=== PATIENT | female | born 1960 | race Caucasian/White ===

== ENCOUNTER 2017-05-09 12:59 | Emergency (ER) | payer BC ==
[2017-05-09 13:04] VITALS: BP 120/77; PULSE 95; TEMP 98.8; BMI 28.3
--- NOTE | 2017-05-09 13:14 | PDOC ---
History of Present Illness - General Chief Complaint: Pain, Acute Stated Complaint: RIGHT ABD PAIN Time Seen by Provider: 05/09/17 13:06 History Source: Patient Exam Limitations: No Limitations - History of Present Illness Initial Comments: 56 yo F history cervical CA (in remission for many years), GERD presents with dec appetite, RUQ pain for past 2 days. She has been unable to eat today due to pain and dec appetite. No prior similar symptoms. No N/V/D, no fever/chills. Aside from her surgery for cervical CA, no other abdominal surgeries. No prior history of gallstones. Pain is moderate, nonradiating. Worse with ambulation. Past History - Past Medical History Allergies/Adverse Reactions: Allergies Allergy/AdvReac Type Severity Reaction Status Date / Time No Known Drug Allergies Allergy Verified 05/09/17 13:00 Home Medications: Ambulatory Orders Azithromycin [Zithromax 250mg Tablets -] 250 mg PO UTDICT #6 tab 05/09/17 Anemia: No Asthma: No Cancer: Yes (Cervical 30 yrs ago) Cardiac Disorders: No CVA: No COPD: No CHF: No Dementia: No Diabetes: No GI Disorders: Yes (GERD) Disorders: No HTN: No Hypercholesterolemia: No Liver Disease: No Seizures: No Thyroid Disease: No - Surgical History Abdominal Surgery: No Appendectomy: No Cardiac Surgery: No Cholecystectomy: No Lung Surgery: No Neurologic Surgery: No Orthopedic Surgery: No - Suicide/Smoking/Psychosocial Hx Smoking Status: No Smoking History: Former smoker Have you smoked in the past 12 months: No Number of Cigarettes Smoked Daily: 0 If you are a former smoker, when did you quit?: 2010 Information on smoking cessation initiated: No Hx Alcohol Use: No Drug/Substance Use Hx: No Substance Use Type: None Hx Substance Use Treatment: No Review of Systems - Review of Systems Able to Perform ROS?: Yes Comments:: GENERAL/CONSTITUTIONAL: No fever or chills. No weakness. HEAD, EYES, EARS, NOSE AND THROAT: No change in vision. No ear pain or discharge. No sore throat. CARDIOVASCULAR: No chest pain or shortness of breath. RESPIRATORY: No cough, wheezing, or hemoptysis. GASTROINTESTINAL: No nausea, vomiting, diarrhea or constipation. +Abd pain. GENITOURINARY: No dysuria, frequency, or change in urination. MUSCULOSKELETAL: No joint or muscle swelling or pain. No neck or back pain. SKIN: No rash NEUROLOGIC: No headache, vertigo, loss of consciousness, or change in strength/ sensation. ENDOCRINE: No increased thirst. No abnormal weight change. HEMATOLOGIC/LYMPHATIC: No anemia, easy bleeding, or history of blood clots. ALLERGIC/IMMUNOLOGIC: No hives or skin allergy. *Physical Exam - Vital Signs Last Vital Signs Temp Pulse Resp BP Pulse Ox 98.8 F 95 H 18 120/77 96 05/09/17 13:00 05/09/17 13:00 05/09/17 13:00 05/09/17 13:05/09/17 13:00 - Physical Exam Comments: GENERAL: Awake, alert, and fully oriented, in no acute distress HEAD: No signs of trauma EYES: PERRLA, EOMI, sclera anicteric, conjunctiva clear ENT: Auricles normal inspection, hearing grossly normal, nares patent, oropharynx clear without exudates. Moist mucosa NECK: Normal ROM, supple, no lymphadenopathy, JVD, or masses LUNGS: Breath sounds equal, clear to auscultation bilaterally. No wheezes, and no crackles HEART: Regular rate and rhythm, normal S1 and S2, no murmurs, rubs or gallops ABDOMEN: Soft, +RUQ tenderness, +hyperactive bowel sounds. +Guarding, no rebound. No masses EXTREMITIES: Normal range of motion, no edema. No clubbing or cyanosis. No cords, erythema, or tenderness NEUROLOGICAL: Cranial nerves II through XII grossly intact. Normal speech, normal gait SKIN: Warm, Dry, normal turgor, no rashes or lesions noted. ED Treatment Course - LABORATORY CBC & Chemistry Diagram: 05/09/17 13:23 05/09/17 13:23 Medical Decision Making - Medical Decision Making 05/09/17 13:17 Will obtain bloodwork, give IV fluids, and plan for RUQ sono to r/o acute lata. She declines pain meds for abd pain, but agrees to ofirmev for headache. 05/09/17 16:22 Late entry. Patient had negative sono (with exception of fatty liver), however still indicated R side for pain. She had recent cough, so CXR was obtained, + retrocardiac infiltrate. Will treat with abx. Stable for DC home. *DC/Admit/Observation/Transfer Diagnosis at time of Disposition: Abdominal pain Qualifiers: Abdominal location: unspecified location Qualified Code(s): R10.9 - Unspecified abdominal pain Pneumonia Qualifiers: Pneumonia type: due to unspecified organism Laterality: unspecified laterality Lung location: unspecified part of lung Qualified Code(s): J18.9 - Pneumonia, unspecified organism - Discharge Dispostion Disposition: HOME Condition at time of disposition: Stable Admit: No - Prescriptions Prescriptions: Azithromycin [Zithromax 250mg Tablets -] 250 mg PO UTDICT #6 tab - Referrals - Patient Instructions Printed Discharge Instructions: DI for Pneumonia -- Adult, DI for Abdominal Pain-Adult - Post Discharge Activity Forms/Work/School Notes: Back to Work
[2017-05-09] MEDS ORDERED: ACETAMINOPHEN INJECTION 100 ML IVPB ONE (13:17)
[2017-05-09] MEDS ORDERED: SODIUM CHLORIDE 1,000 ML IV STA (13:18)
[2017-05-09] MEDS ORDERED: ACETAMINOPHEN 1000 MG/100 ML VIAL (NON FORMULARY) IVPB ONE (13:18)
[2017-05-09 13:33] LABS: PH,URINE 5.5 (4.5-8); URINE APPEARANCE Clear; URINE BILIRUBIN Negative (NEGATIVE); URINE GLUCOSE (UA) Negative (NEGATIVE); URINE KETONE Negative (NEGATIVE); URINE LEUK ESTERASE Negative (NEGATIVE); URINE NITRITE Negative (NEGATIVE); URINE PROTEIN Negative (NEGATIVE); URINE UROBILINOGEN 0.2 (0.2-1.0)
[2017-05-09 13:34] LABS: URINE BLOOD Trace-lysed (NEGATIVE)
[2017-05-09 13:35] LABS: URINE COLOR YELLOW
[2017-05-09 13:35] LABS: BASO % 0.4 % (0-2.0); EOS % 2.1 % (0-4.5); HEMATOCRIT 39.1 % (32.4-45.2); HEMOGLOBIN 13.1 GM/dl (10.7-15.3); LYMPH % 26.8 % (8-40); MCH 27.3 pg (25.7-33.7); MCHC 33.6 g/dl (32.0-36.0); MEAN CELL VOLUME 81.4 fl (80-96); MEAN PLT VOLUME 8.1 fl (7.5-11.1); MONO % 7.3 % (3.8-10.2); NEUT % 63.4 % (42.8-82.8); PLATELET COUNT 388 K/MM3 (134-434); RDW 13.3 % (11.6-15.6); WHITE BLOOD COUNT 7.5 K/mm3 (4.0-10.8)
[2017-05-09 13:42] LABS: INR 1.01 (0.82-1.09); PROTHROMBIN TIME (PATIENT) 11.3 SEC (10.2-13.0)
[2017-05-09 13:46] LABS: ALBUMIN 3.9 g/dl (3.5-5.0); ALK PHOS 67 U/L (32-92); ANION GAP 7 (8-16); BILIRUBIN,TOTAL 0.5 mg/dl (0.2-1.0); BLOOD UREA NITROGEN 13 mg/dl (7-18); CHLORIDE 104 mmol/L (98-107); CO2 24 mmol/L (22-28); CREATININE 0.6 mg/dl (0.6-1.3); GLUCOSE,RANDOM 93 mg/dl (74-106); SGOT/AST 28 U/L (10-42); SGPT/ALT 20 U/L (10-40); SODIUM 135 mmol/L (136-145); TOT PROT 7.2 g/dl (6.4-8.3)
[2017-05-09 13:47] LABS: EPI CELLS FEW /HPF; URINE BACTERIA FEW /hpf (NEGATIVE)
[2017-05-09 14:48] LABS: LIPASE 154 U/L (73-393)
== END 2017-05-09 16:25 | disposition home or self-care (01) ==
LOC: FER 12:59
PROC: 3E033GC Introduction of Other Therapeutic Substance into Peripheral Vein, Percutaneous Approach (ICD-10-PCS; principal; 2017-05-09)
PROC: 3E0337Z Introduction of Electrolytic and Water Balance Substance into Peripheral Vein, Percutaneous Approach (ICD-10-PCS; 2017-05-09)
DX: J18.9 Pneumonia, unspecified organism (principal); R10.11 Right upper quadrant pain; Z85.41 Personal history of malignant neoplasm of cervix uteri; K21.9 Gastro-esophageal reflux disease without esophagitis; Z87.891 Personal history of nicotine dependence
CPT/HCPCS: 36415; 71046-TC-FY; 76705-TC; 80053; 81003; 81015; 83690; 85025; 85610; 86850; 86900; 86901; 99282-25

== ENCOUNTER 2017-06-16 11:09 | Day surgery (SDC) | payer BC ==
[2017-06-07 15:00] VITALS: BMI 26.9
[2017-06-16] MEDS ORDERED: PROPOFOL 20 ML ONE (11:25)
[2017-06-16] MEDS ORDERED: LIDOCAINE HCL/PF 2% SDV 5ML VIAL ONE (11:25)
[2017-06-16 12:27] VITALS: TEMP 98
[2017-06-16 12:45] VITALS: BP 110/50; PULSE 70
--- NOTE | 2017-06-18 12:07 | PATH ---
Surgical Pathology Report Patient Name: GREGORIA APARICIO [facility]. Rec. #: [id number] /Age/Gender: 1960 (Age: 56) / F Account: [id number] Location: Taken: 06/16/2017 Received: 06/16/2017 Reported: 06/18/2017 Physicians: Jacinda Davis M.D. Specimen(s) Received A: BX DUODENUM 2ND PORTION B: BX ANTRUM C: BX GE JUNCTION Clinical History Dyspepsia Postoperative diagnosis: Ulcer, hiatal hernia, gastritis Final Diagnosis A. DUODENUM, SECOND PORTION, BIOPSY: DUODENAL MUCOSA WITHOUT SIGNIFICANT PATHOLOGIC FINDINGS. B. STOMACH, ANTRUM, BIOPSY: GASTRIC ANTRAL MUCOSA WITH MILD CHRONIC GASTRITIS. IMMUNOHISTOCHEMICAL STAIN FOR H. PYLORI IS NEGATIVE. C. GASTROESOPHAGEAL (GE) JUNCTION, BIOPSY: GASTRIC CARDIAC TYPE MUCOSA WITH MILD CHRONIC GASTRITIS. NO INTESTINAL METAPLASIA, DYSPLASIA, OR SQUAMOUS MUCOSA IDENTIFIED. Electronically Signed Jacinda Palomares M.D. Gross Description A. Received in formalin, labeled "BX duodenum" is a fontaine, irregular portion of soft tissue measuring 0.3 cm. in greatest dimension. The specimen is submitted in toto in one cassette. B. Received in formalin, labeled "BX antrum" is a fontaine, irregular portion of soft tissue measuring 0.2 cm. in greatest dimension. The specimen is submitted in toto in one cassette. C. Received in formalin, labeled "BX GE junction" is a fontaine, irregular portion of soft tissue measuring 0.4 cm. in greatest dimension. The specimen is submitted in toto in one cassette. ABDIRASHID/06/17/2017 bethanie/06/17/2017
== END 2017-06-16 12:47 | disposition home or self-care (01) ==
LOC: FASU-ENDO 11:09
PROVIDERS: ATTEND Internal Medicine Gastroenterology
PROC: 0DB68ZX Excision of Stomach, Via Natural or Artificial Opening Endoscopic, Diagnostic (ICD-10-PCS; 2017-06-16)
PROC: 0DB48ZX Excision of Esophagogastric Junction, Via Natural or Artificial Opening Endoscopic, Diagnostic (ICD-10-PCS; principal; 2017-06-16 12:15)
DX: K29.50 Unspecified chronic gastritis without bleeding (principal); R13.10 Dysphagia, unspecified; K44.9 Diaphragmatic hernia without obstruction or gangrene; K25.9 Gastric ulcer, unspecified as acute or chronic, without hemorrhage or perforation
CPT/HCPCS: 88305-TC; 88342-TC

== ENCOUNTER 2017-10-13 09:37 | Day surgery (SDC) | payer BC ==
[2017-10-08 12:33] VITALS: BMI 27.4
[2017-10-13] MEDS ORDERED: PROPOFOL 20 ML ONE ×2 (10:11)
[2017-10-13 12:09] VITALS: TEMP 97.5
[2017-10-13 12:43] VITALS: BP 116/51; PULSE 65
--- NOTE | 2017-10-14 12:23 | PATH ---
Surgical Pathology Report Patient Name: GREGORIA APARICIO [facility]. Rec. #: [id number] /Age/Gender: 1960 (Age: 56) / F Account: [id number] Location: [facility] Taken: 10/13/2017 Received: 10/13/2017 Reported: 10/14/2017 Physicians: Jacinda Davis M.D. Specimen(s) Received A: ANTRUM B: CECUM C: TRANSVERSE D: DESCENDING E: SIGMOID F: RECTO SIGMOID X2 G: RECTUM BX Clinical History GERD, rule out colon cancer Postoperative diagnosis: Gastritis, colonic polyps Final Diagnosis A. STOMACH, ANTRUM, BIOPSY: GASTRIC ANTRAL MUCOSA WITHOUT SIGNIFICANT PATHOLOGIC FINDINGS. IMMUNOHISTOCHEMICAL STAIN FOR H. PYLORI IS NEGATIVE. B. CECUM, BIOPSY: TUBULAR ADENOMA C. TRANSVERSE COLON, POLYPECTOMY: TUBULAR ADENOMA(S). D. DESCENDING COLON, BIOPSY: POLYPOID COLONIC MUCOSA WITHOUT SIGNIFICANT PATHOLOGIC FINDINGS. E. SIGMOID COLON, BIOPSY: POLYPOID COLONIC MUCOSA WITH FOCAL SUPERFICIAL HYPERPLASTIC FEATURES. F. RECTOSIGMOID COLON, BIOPSY: HYPERPLASTIC POLYP(S). G. RECTUM, BIOPSY: HYPERPLASTIC POLYP. Electronically Signed Jacinda Palomares M.D. Gross Description A. Received in formalin, labeled "antrum" is a fontaine, irregular portion of soft tissue measuring 0.3 cm. in greatest dimension. The specimen is submitted in toto in one cassette. B. Received in formalin, labeled "cecum" is a fontaine, irregular portion of soft tissue measuring 0.3 cm. in greatest dimension. The specimen is submitted in toto in one cassette. C. Received in formalin, labeled "transverse" is a fontaine, irregular portion of soft tissue measuring 0.7 cm. in greatest dimension. The specimen is submitted in toto in one cassette. D. Received in formalin, labeled "descending" is a fontaine, irregular portion of soft tissue measuring 0.5 cm. in greatest dimension. The specimen is submitted in toto in one cassette. E. Received in formalin, labeled "sigmoid" is a fontaine, irregular portion of soft tissue measuring 0.3 cm. in greatest dimension. The specimen is submitted in toto in one cassette. F. Received in formalin, labeled "rectosigmoid" are 3 fontaine, irregular portions of soft tissue ranging from 0.3-0.4 cm. in greatest dimension. The specimens are submitted in toto in one cassette. G. Received in formalin, labeled "rectum" is a fontaine, irregular portion of soft tissue measuring 0.2 cm. in greatest dimension. The specimen is submitted in toto in one cassette. 10/13/201710/13/2017
== END 2017-10-13 12:50 | disposition home or self-care (01) ==
LOC: FASU-ENDO 09:37
PROVIDERS: ATTEND Internal Medicine Gastroenterology
PROC: 0DBM8ZX Excision of Descending Colon, Via Natural or Artificial Opening Endoscopic, Diagnostic (ICD-10-PCS; 2017-10-13)
PROC: 0DB68ZX Excision of Stomach, Via Natural or Artificial Opening Endoscopic, Diagnostic (ICD-10-PCS; 2017-10-13)
PROC: 0DBL8ZX Excision of Transverse Colon, Via Natural or Artificial Opening Endoscopic, Diagnostic (ICD-10-PCS; principal; 2017-10-13 11:16)
PROC: 0DBH8ZX Excision of Cecum, Via Natural or Artificial Opening Endoscopic, Diagnostic (ICD-10-PCS; 2017-10-13 11:16)
PROC: 0DBN8ZX Excision of Sigmoid Colon, Via Natural or Artificial Opening Endoscopic, Diagnostic (ICD-10-PCS; 2017-10-13 11:16)
DX: Z12.11 Encounter for screening for malignant neoplasm of colon (principal); D12.0 Benign neoplasm of cecum; D12.3 Benign neoplasm of transverse colon; D12.4 Benign neoplasm of descending colon; D12.5 Benign neoplasm of sigmoid colon; K63.5 Polyp of colon; K57.30 Diverticulosis of large intestine without perforation or abscess without bleeding; K64.8 Other hemorrhoids; Z87.11 Personal history of peptic ulcer disease; Z13.810 Encounter for screening for upper gastrointestinal disorder
CPT/HCPCS: 88305-TC; 88342-TC

== ENCOUNTER 2020-06-07 10:03 | Emergency (ER) | payer BC ==
[2020-06-07 10:32] VITALS: BMI 29.2
[2020-06-07] MEDS ORDERED: BAMLANIVIMAB 700 MG in SODIUM CHLORIDE 250 ML IVPB ONE (11:29)
[2020-06-07] MEDS ORDERED: SODIUM CHLORIDE IVPB ONE (11:55)
[2020-06-07] MEDS ORDERED: BAMLANIVIMAB IVPB ONE (11:55)
[2020-06-07] MEDS ORDERED: ETESEVIMAB IVPB ONE (11:55)
[2020-06-07 12:24] LABS: HEMATOCRIT 37.5 % (32.4-45.2); HEMOGLOBIN 12.3 GM/dL (10.7-15.3); MCH 27.4 pg (25.7-33.7); MCHC 32.9 g/dl (32.0-36.0); MEAN CELL VOLUME 83.2 fl (80-96); MEAN PLT VOLUME 8.2 fl (7.5-11.1); PLATELET COUNT 316 K/MM3 (134-434); RDW 14.8 % (11.6-15.6); WHITE BLOOD COUNT 11.1 K/mm3 (4.0-10.0)
[2020-06-07 12:46] LABS: POTASSIUM 4.2 mmol/L (3.5-5.1)
[2020-06-07 12:47] LABS: CALCIUM 8.7 mg/dL (8.5-10.1)
[2020-06-07 12:48] LABS: BLOOD UREA NITROGEN 11.5 mg/dL (7-18)
[2020-06-07 12:51] LABS: CREATININE 0.7 mg/dL (0.55-1.3)
[2020-06-07 15:27] VITALS: BP 136/87; PULSE 89; TEMP 98.7
== END 2020-06-07 15:27 | disposition home or self-care (01) ==
LOC: JER 10:03 → JCOVINFU 10:03
DX: U07.1 COVID-19 (principal)
CPT/HCPCS: 36415; 71046-TC-FY; 80048; 85027; 99284-25; M0239; Q0239; Q0245

== ENCOUNTER 2020-09-11 11:04 | Day surgery (SDC) | payer BC ==
[2020-09-06 11:45] VITALS: BMI 29.2
[2020-09-11] MEDS ORDERED: PROPOFOL 20 ML ONE ×2 (11:56)
[2020-09-11 13:17] VITALS: TEMP 97.9
[2020-09-11 13:41] VITALS: BP 122/60; PULSE 70
== END 2020-09-11 14:15 | disposition home or self-care (01) ==
LOC: FASU-ENDO 11:04
PROVIDERS: ATTEND Internal Medicine Gastroenterology
PROC: 0DB98ZX Excision of Duodenum, Via Natural or Artificial Opening Endoscopic, Diagnostic (ICD-10-PCS; 2020-09-11)
PROC: 0DB68ZX Excision of Stomach, Via Natural or Artificial Opening Endoscopic, Diagnostic (ICD-10-PCS; 2020-09-11)
PROC: 0DB48ZX Excision of Esophagogastric Junction, Via Natural or Artificial Opening Endoscopic, Diagnostic (ICD-10-PCS; 2020-09-11)
PROC: 0DBN8ZX Excision of Sigmoid Colon, Via Natural or Artificial Opening Endoscopic, Diagnostic (ICD-10-PCS; principal; 2020-09-11 12:30)
DX: Z86.010 Personal history of colon polyps (principal); D12.7 Benign neoplasm of rectosigmoid junction; K64.0 First degree hemorrhoids; K29.50 Unspecified chronic gastritis without bleeding; K31.9 Disease of stomach and duodenum, unspecified; K20.90 Esophagitis, unspecified without bleeding
CPT/HCPCS: 88305-TC; 88342-TC